=== PATIENT | female | born 1960 | race American Indian/Alaskan Native ===

== ENCOUNTER 2016-12-16 08:55 | Emergency (ER) | payer BC ==
[2016-12-16 08:55] VITALS: BMI 30.3
[2016-12-16 09:36] VITALS: TEMP 98
[2016-12-16] MEDS ORDERED: Sodium Chloride 0.9% 500 ML IV STA (10:12)
[2016-12-16 10:33] LABS: BASO # 0.03 K/mm3 (0.0-2.0); BASO % 0.2 % (0.0-3.0); EOS % 0.2 % (1.5-5.0); GRAN # 11.21 (1.4-6.5); GRAN % 81.6 % (50.0-68.0); HEMOGLOBIN 12.7 gm/dL (12.0-16.0); LYMPH # 1.7 (1.2-3.4); LYMPH % 12.7 % (22.0-35.0); MEAN CELL VOLUME 75.5 fL (80.0-105.0); MEAN CORPUSCULAR HGB CONC 33.2 g/dl (31.0-37.0); MEAN PLATELET VOLUME 9.8 fl (7.0-11.0); MONO # 0.7 (0.1-0.6); MONO % 5.3 % (1.0-6.0); PLATELET COUNT 359 10^3/uL (120.0-450.0); RBC 5.07 10^6/uL (3.5-6.1); RED CELL DISTRIBUTION WIDTH 14.3 % (11.5-14.5); WHITE BLOOD COUNT 13.7 10^3/ul (4.5-11.0)
[2016-12-16 10:34] LABS: URINE BILIRUBIN NEGATIVE (NEGATIVE); URINE BLOOD MODERATE (NEGATIVE); URINE GLUCOSE (UA) NEGATIVE (NEGATIVE); URINE LEUKOCYTE ESTERASE SMALL Leu/uL (NEGATIVE); URINE NITRATE NEGATIVE (NEGATIVE); URINE PROTEIN TRACE mg/dL (<30 mg/dL); URINE UROBILINOGEN 0.2 E.U./dL (<1 E.U./dL)
[2016-12-16 10:35] LABS: URINE APPEARANCE CLEAR (CLEAR); URINE COLOR YELLOW (YELLOW)
[2016-12-16] MEDS ORDERED: Sodium Chloride 0.9% 1,000 ML IV STA (10:37)
[2016-12-16] MEDS ORDERED: Famotidine 20mg/50ml 20 MG/50 ML BAG IV STA (10:37)
[2016-12-16 10:42] LABS: INR 1.06 (0.93-1.08); PARTIAL THROMBOPLASTIN TIME 30.9 Seconds (23.7-30.8); PROTHROMBIN TIME 11.4 Seconds (9.9-11.8)
[2016-12-16 10:47] LABS: ALB/GLOB RATIO 1.1 (1.1-1.8); ALBUMIN 4.4 g/dL (3.0-4.8); ALT/SGPT 31 U/L (7-56); AST/SGOT 34 U/L (15-39); BLOOD UREA NITROGEN 15 mg/dL (7-21); CALCIUM 9.4 mg/dL (8.4-10.5); GFR AFRICAN-AMERICAN > 60; GFR NON-AFRICAN AMERICAN > 60; LIPASE 77 U/L (23-300)
[2016-12-16 10:50] LABS: URINE BACTERIA SMALL (NEG)
--- NOTE | 2016-12-16 10:55 | ED PDOC ---
Arrival/HPI - General Chief Complaint: Abdominal Pain Time Seen by Provider: 12/16/16 10:37 Historian: Patient - History of Present Illness Narrative History of Present Illness (Text): 12/16/16 10:51 56 year old female, who denies any past medical history, whose had 1 week of non -bloody, non-bilious vomiting, and watery diarrhea. Denies abdominal discomfort , weakness, fever, chills. Symptoms started after she returned from [facility] about 6 days ago. Time/Duration: 1 week Symptom Onset: Sudden Symptom Course: Unchanged Context: Other (Travel from [facility]) Past Medical History - Provider Review Nursing Documentation Reviewed: Yes - Travel History Have you recently traveled outside [place] w/in the past 3 mons?: Yes If Yes, travel location?: [facility] - Infectious Disease Hx of Infectious Diseases: None - Tetanus Immunization Tetanus Immunization: Unknown - Reproductive Menopause: Yes - Cardiac Hx Cardiac Disorders: (denies) - Pulmonary Hx Respiratory Disorders: No (denies) - Neurological Hx Neurological Disorder: Yes - HEENT Hx HEENT Disorder: Yes (reading glasses) - Renal Hx Renal Disorder: No - Endocrine/Metabolic Hx Endocrine Disorders: No - Hematological/Oncological Hx Blood Disorders: No - Integumentary Hx Dermatological Disorder: No - Musculoskeletal/Rheumatological Hx Back Pain: Yes (chronic since 2016, receiving epidural injections) Hx Falls: No - Gastrointestinal Hx Gastrointestinal Disorders: No - Genitourinary/Gynecological Hx Genitourinary Disorders: No - Psychiatric Hx Depression: No Hx Emotional Abuse: No Hx Physical Abuse: No Hx Substance Use: No - Surgical History Hx Section: Yes (98') - Anesthesia Hx Anesthesia: Yes Hx Anesthesia Reactions: No Hx Malignant Hyperthermia: No - Suicidal Assessment Feels Threatened In Home Enviroment: No Family/Social History - Physician Review Nursing Documentation Reviewed: Yes Family/Social History: No Known Family HX Smoking Status: Never Smoked Hx Alcohol Use: Yes Frequency of alcohol use: Socially Hx Substance Use: No Hx Substance Use Treatment: No Allergies/Home Meds Allergies/Adverse Reactions: Allergies oxycodone HCl [From Percocet] Adverse Reaction (Verified 12/16/16 09:36) SHORTNESS OF BREATH Physical Exam - Physical Exam Narrative Physical Exam (Text): 12/16/16 10:56 - Review of Systems Constitutional: Normal. absent: Chills, Fevers Eyes: Normal ENT: Normal Respiratory: Normal absent: SOB, Cough, Sputum Cardiovascular: Normal absent: Chest pain, Palpitations, Syncope Gastrointestinal: nausea, vomiting, diarrhea absent: Abdominal discomfort Genitourinary: Normal. absent: Dysuria, Frequency, Hematuria Musculoskeletal: Normal. absent: Arthralgias, Back Pain, Neck Pain Skin: Normal Neurological: Normal absent: Focal Weakness Endocrine: Normal Hemo/Lymphatic: Normal Psychiatric: Normal - Physical exam Patient appears age appropriate, speaking full sentences without difficulty - Systems Exam Head: Present: Atraumatic, Normocephalic Pupils: Present: PERRL Extraocular Muscles: Present: EOMI Conjunctiva: Present: Normal Mouth: Present: Moist Mucous Membranes Neck: Present: Normal Range of Motion. No: MIDLINE TENDERNESS, Paraspinal Tenderness Respiratory/Chest: Present: Clear to Auscultation, Good Air Exchange. No: Respiratory Distress, Accessory Muscle Use, Tachypnic Cardiovascular: Present: Regular Rate and Rhythm, Normal S1, S2, Peripheral Pulses Present. No: Murmurs Abdomen: Present: Normal Bowel Sounds, No: Tenderness, Peritoneal Signs, Rebound, Guarding, Distention Back: Present: Normal Inspection. No: Midline Tenderness, Paraspinal Tenderness Upper Extremity: Present: Normal Inspection. No: Cyanosis, Edema Lower Extremity: Present: Normal Inspection. No: Edema Neurological: Present: GCS=15, Speech Normal, cranial nerves II through XII fully intact with no cerebellar abnormality, neuro-sensory fully intact. No focal neurological deficits. Skin: Present: Warm, Dry, Normal Color. No: Rashes Lymphatic: Present: OX3, NI, NC Psychiatric: Present: Alert, Oriented x 3, Normal Insight, Normal Concentration Vital Signs Reviewed: Yes Vital Signs Temp Pulse Resp BP Pulse Ox 12/16/16 11:24 90 16 147/73 98 12/16/16 09:30 98 F 112 H 20 115/76 97 Temperature: Afebrile Blood Pressure: Normal Pulse: Tachycardic Respiratory Rate: Normal Appearance: Positive for: Well-Appearing Pain Distress: None Mental Status: Positive for: Alert and Oriented X 3 Medical Decision Making ED Course and Treatment: 12/16/16 11:01 Impression: 56 year old female with non-bloody, non-bilious vomiting and watery diarrhea, hx of recent travel. No acute findings on physical examination. Differential Diagnosis included but are not limited to: Dehydration vs. Infectious Diarrhea Plan: -- Zofran -- Pepcid -- IV Fluids -- Urine Culture -- Reassess and disposition Prior Visits: Notes and results from previous visits were reviewed. Patient was last seen in the emergency department on 09/04/2015 complaining of fever, sore throat, and cough. Pt was admitted. Progress Notes: 12/16/16 11:25 labs reviewed mild leukocytosis repeat abd exam soft/nt/nd with pos. bs in all 4 q's and no peritoneal signs pt hemodynamically stable in no distress tolerating PO without difficulty states she feels comfortable being dc'd home with outpatient f/u will be dc'd home with cipro pt advised and informed of potential dangers while taking cipro, including tendon damage Pt states she understands to return to the ER right away for new or worsening symptoms or for inability to f/u with PMD or specialist as instructed. Patient states that she fully agrees with and understands discharge instructions. States that she agrees with the plan and disposition. Verbalized and repeated discharge instructions and plan. I have given the patient opportunity to ask any additional questions. - Lab Interpretations Lab Results: 12/16/16 10:24 12/16/16 10:24 Lab Results 12/16/16 10:24: PT 11.4, INR 1.06, APTT 30.9 H 12/16/16 10:24: Sodium 142, Potassium 4.2, Chloride 108 H, Carbon Dioxide 22, Anion Gap 16, BUN 15, Creatinine 0.8, Est GFR ( Amer) > 60, Est GFR (Non- Af Amer) > 60, Random Glucose 101, Calcium 9.4, Total Bilirubin 0.4, AST 34, ALT 31, Alkaline Phosphatase 123, Total Protein 8.4 H, Albumin 4.4, Globulin 4.0 , Albumin/Globulin Ratio 1.1, Lipase 77 12/16/16 10:24: WBC 13.7 H D, RBC 5.07, Hgb 12.7, Hct 38.3, MCV 75.5 L, MCH 25.0 , MCHC 33.2, RDW 14.3, Plt Count 359, MPV 9.8, Gran % 81.6 H, Lymph % (Auto) 12.7 L, [place] % (Auto) 5.3, Eos % (Auto) 0.2 L, Baso % (Auto) 0.2, Gran # 11.21 H , Lymph # 1.7, [place] # 0.7 H, Eos # 0.0, Baso # 0.03 12/16/16 10:05: Urine Color Yellow, Urine Appearance Clear, Urine pH 6.0, Ur Specific [place] 1.025, Urine Protein Trace H, Urine Glucose (UA) Negative, Urine Ketones Negative, Urine Blood Moderate H, Urine Nitrate Negative, Urine Bilirubin Negative, Urine Urobilinogen 0.2, Ur Leukocyte Esterase Small H, Urine RBC 1 - 3, Urine WBC 10 - 15, Ur Epithelial Cells 1 - 3, Urine Bacteria Small I have reviewed the lab results: Yes - Medication Orders Current Medication Orders: Sodium Chloride (Sodium Chloride 0.9%) 1,000 mls @ 1,000 mls/hr IV .Q1H STA Stop: 12/16/16 11:36 Last Admin: 12/16/16 11:04 Dose: 1,000 mls/hr Discontinued Medications Sodium Chloride (Sodium Chloride 0.9%) 500 mls @ 999 mls/hr IV .Q31M STA Stop: 12/16/16 10:42 Last Admin: 12/16/16 10:32 Dose: 999 mls/hr Famotidine (Pepcid 20mg/50ml Premix) 20 mg in 50 mls @ 100 mls/hr IV STAT STA Stop: 12/16/16 11:06 Last Admin: 12/16/16 11:04 Dose: 100 mls/hr Ondansetron HCl (Zofran Inj) 4 mg IVP STAT STA Stop: 12/16/16 10:32 Last Admin: 12/16/16 10:39 Dose: 4 mg Ondansetron HCl (Zofran Inj) 4 mg IVP STAT STA Stop: 12/16/16 10:38 Last Admin: 12/16/16 10:40 Dose: - Scribe Statement Rodrigo Graham Provider Scribe Attestation: All medical record entries made by the Scribe were at my direction and personally dictated by me. I have reviewed the chart and agree that the record accurately reflects my personal performance of the history, physical exam, medical decision making, and the department course for this patient. I have also personally directed, reviewed, and agree with the discharge instructions and disposition. Disposition/Present on Arrival - Present on Arrival Any Indicators Present on Arrival: No History of DVT/PE: No History of Uncontrolled Diabetes: No Urinary Catheter: No History of Decub. Ulcer: No History Surgical Site Infection Following: None - Disposition Have Diagnosis and Disposition been Completed?: Yes Diagnosis: Diarrhea Disposition: HOME/ ROUTINE Disposition Time: 11:27 Patient Plan: Discharge Patient Problems: Current Active Problems Problem Status Onset Diarrhea Acute Condition: GOOD Discharge Instructions (ExitCare): Traveler's Diarrhea (ED), Gastroenteritis ( ED), Acute Nausea and Vomiting (ED), Acute Diarrhea (ED) Additional Instructions: PLEASE RETURN TO THE EMERGENCY DEPARTMENT FOR NEW OR WORSENING SYMPTOMS. RETURN RIGHT AWAY IF YOU CANNOT FOLLOW UP WITH YOUR PRIMARY CARE DOCTOR, CLINIC, OR SPECIALIST IN 1-2 DAYS. Prescriptions: Ciprofloxacin [Cipro] 500 mg PO Q12 #14 tab Ondansetron [Zofran Odt] 4 mg PO Q6 PRN #14 odt PRN Reason: Nausea/Vomiting Referrals: Lambert Valencia, [Primary Care Provider] - Follow up with primary Forms: [employer] ([place])
[2016-12-16 11:25] VITALS: BP 147/73; PULSE 90; RESP 16; O2SAT 98
== END 2016-12-16 12:02 | disposition home or self-care (01) ==
LOC: ED 08:55
DX: R19.7 Diarrhea, unspecified (principal)
CPT/HCPCS: 80053; 81001; 83690; 85025; 85610; 85730; 87086; 96365; 96375; 99283; J2405; J7040